=== PATIENT | female | born 1965 | race Caucasian/White ===

== ENCOUNTER → 2019-12-28 | Outpatient (CLI) | payer MEDICAID ==
[2019-12-28 15:12] LABS: FERRITIN 6.86 ng/mL (11.1-264.0)
== END ==
LOC: OD 13:14
PROVIDERS: ATTEND Nurse Practitioner Family
DX: D64.9 Anemia, unspecified (principal)
CPT/HCPCS: 36415; 82728; 83540; 83550

== ENCOUNTER 2020-01-02 17:53 | Emergency (ER) | payer MEDICAID ==
[2020-01-02 18:01] VITALS: BP 150/89
[2020-01-02] MEDS ORDERED: METOCLOPRAMIDE HCL ORAL SOLN 10 MG/10 ML UDCUP PO ONE (20:19)
[2020-01-02] MEDS ORDERED: LIDOCAINE 2% VISCOUS SOLN 15 ML UDCUP PO ONE (20:19)
[2020-01-02] MEDS ORDERED: MAG HYDROX/AL HYDROX/SIMETH SUSP 30 ML UDCUP PO ONE (20:19)
--- NOTE | 2020-01-02 20:23 | ER Document Report ---
ED GI/ - General Chief Complaint: Abdominal Pain Stated Complaint: ABDOMINAL PAIN,BLOOD IN STOOLS Time Seen by Provider: 01/02/20 20:03 Primary Care Provider: SHARMILA NEVES FNP [Primary Care Provider] - Follow up as needed Notes: CHIEF COMPLAINT: Upper abdominal pain HPI: 54-year-old female with history of gastric ulcers with prior history for gastric ulcers presenting for upper abdominal pain. Patient states that she also has a history of anemia. Patient states she has an upper endoscopy scheduled with Dr. Douglas in 2 weeks. States that she recently started iron pills and noticed that her stool became black and tarry after starting the iron pills. Abdominal pain has not changed significantly after starting the iron pills. Has not had vomiting. Is not on other medications for her stomach. ROS: See HPI - all other systems were reviewed and are otherwise negative Constitutional: no fever Eyes: no drainage, no blurred vision ENT: no runny nose, no sore throat Cardiovascular: no chest pain Resp: no SOB, no cough GI: no vomiting, no diarrhea, + abdominal pain : no dysuria Integumentary: no rash Allergy: no hives Musculoskeletal: no extremity pain or swelling Neurological: no numbness/tingling, no weakness MEDICATIONS: I agree with the patient medications as charted by the RN. ALLERGIES: I agree with the allergies as charted by the RN. PAST MEDICAL HISTORY/PAST SURGICAL HISTORY: Reviewed and agree as charted by RN. SOCIAL HISTORY: Reviewed and agree as charted by RN. FAMILY HISTORY: No significant familial comorbid conditions directly related to patient complaint EXAM: Reviewed vital signs as charted by RN. CONSTITUTIONAL: Alert and oriented and responds appropriately to questions. Well-appearing; well-nourished HEAD: Normocephalic; atraumatic EYES: PERRL; Conjunctivae clear, sclerae non-icteric ENT: normal nose; no rhinorrhea; moist mucous membranes; pharynx without lesions noted, no uvula edema or deviation, no tonsillar hypertrophy, phonation normal NECK: Supple without meningismus; non-tender; no cervical lymphadenopathy, no masses CARD: RRR; no murmurs, no clicks, no rubs, no gallops; symmetric distal pulses RESP: Normal chest excursion without splinting or tachypnea; breath sounds clear and equal bilaterally; no wheezes, no rhonchi, no rales, pulse oximetry 100% on room air not hypoxic ABD/GI: Normal bowel sounds; non-distended; soft, mild tenderness to the upper abdomen on palpation, no rebound, no guarding; no palpable organomegaly or masses. BACK: The back appears normal and is non-tender to palpation, there is no CVA tenderness EXT: Normal ROM in all joints; non-tender to palpation; no cyanosis, no effusions, no edema SKIN: Normal color for age and race; warm; dry; good turgor; no acute lesions noted NEURO: Moves all extremities equally; Motor and sensory function intact PSYCH: The patient's mood and manner are appropriate. Grooming and personal hygiene are appropriate. MDM: 54-year-old female with history of anemia with history of gastric ulcers presenting for continued abdominal pain. This is not an issue for the patient she has endoscopy scheduled in 2 weeks. Stools became dark and tarry after starting iron pills only. States prior to starting the iron pills. Will obtain screening labs and plan for CT given her age and her upper abdominal discomfort to evaluate perforation or other surgical or infectious process - Related Data Allergies/Adverse Reactions: prozac Allergy (Uncoded 01/02/20 20:28) Home Medications: liquid sulfate. dicyclomine. ferrous sulfate. lisinopril. hydrochlorothiazide. lizzess Past Medical History - Social History Smoking Status: Unknown if Ever Smoked Family History: Reviewed & Not Pertinent Physical Exam - Vital signs Vitals: Temp Pulse Resp BP Pulse Ox 97.9 F 65 22 H 150/89 H 98 01/02/20 17:59 01/02/20 17:59 01/02/20 17:59 01/02/20 17:59 01/02/20 17:59 Course - Re-evaluation Re-evalutation: 01/02/20 20:47 Nursing asked me to speak with the patient as she declined to have her IV started her lab work drawn. She is now declining all testing at this time does feel slightly better after GI cocktail but does not want lab work or imaging studies states she will call her advanced practice nurse in the morning. She does not wish to have any further testing at this time despite my indication that we have not found a definitive reason for her discomfort and cannot tell her that she does not have a more serious condition that may result in disability and , she verbalizes understanding of this - Vital Signs Vital signs: Temp Pulse Resp BP Pulse Ox 97.9 F 65 22 H 150/89 H 98 01/02/20 17:59 01/02/20 17:59 01/02/20 17:59 01/02/20 17:59 01/02/20 17:59 Discharge - Discharge Clinical Impression: Abdominal pain, epigastric, Left against medical advice Condition: Fair Disposition: HOME, SELF-CARE Additional Instructions: You have decided to leave AGAINST MEDICAL ADVICE without completing the recommended testing here today to determine the cause of your abdominal pain. Please follow-up with your advanced practice nurse tomorrow. Return to the hospital if you have any worsening symptoms. Please be aware that we could not definitively tell you that you do not have a serious condition that may deteriorate resulting in disability or Referrals: SHARMILA NEVES FNP [Primary Care Provider] - Follow up as needed
== END 2020-01-02 21:02 | disposition home or self-care (01) ==
LOC: ER 17:53
DX: Z53.20 Procedure and treatment not carried out because of patient's decision for unspecified reasons (principal); R10.13 Epigastric pain; R10.10 Upper abdominal pain, unspecified; R19.5 Other fecal abnormalities; R11.10 Vomiting, unspecified; Z88.8 Allergy status to other drugs, medicaments and biological substances; Z79.899 Other long term (current) drug therapy
CPT/HCPCS: 99283; J3490 ×3; 74177

== ENCOUNTER 2020-01-12 07:01 | Day surgery (SDC) | payer MEDICAID ==
[2020-01-12] MEDS ORDERED: PROPOFOL INJ 200 MG/20 ML VIAL IV ONE (07:40)
--- NOTE | 2020-01-12 08:49 | Operative Report ---
Operative Report DATE OF SURGERY: 01/12/20 Operative Report: The risk, benefits and alternatives of the procedure including the risk of bleeding, perforation requiring surgery have been explained to the patient in detail and informed consent has been obtained. Patient is taken back to the endoscopy suite and placed in a left, lateral decubital position. Timeout was called. Propofol medication is administered. Rectal examination is done which did not reveal any masses, tears or fissures. An Olympus videoscope was introduced into the patient's rectum. Scope was then carefully advanced all the way to the cecum. Cecum was identified by the usual anatomical landmarks including the ileocecal valve as well as the appendiceal office. Photodocumentation is obtained. Scope was then sequentially pulled back via the rest segments of the colon including the ascending colon, hepatic flexure, transverse colon, splenic flexure, descending colon and finally into the rectosigmoid portions of the colon. Retroflexion maneuver is performed. The risks benefits and alternatives of the procedure explained to the patient in detail and informed consent is obtained.A GIF Olympus video scope was inserted into the patient's mouth and hypopharynx ,the esophagus is identified intubated and insufflated ,the scope was then advanced through the esophagus stomach and duodenum, retroflexion maneuver is done the esophagus stomach and first and second portions of the duodenum examined PREOPERATIVE DIAGNOSIS: History of gastric ulcers. Chronic anemia. Change of bowel habits. Dysphagia POSTOPERATIVE DIAGNOSIS: Gastric outlet ulcers x2 duodenal ulcer status post biopsy. Gastritis. Hiatal hernia. Ventral hernia. Diverticulosis. Internal hemorrhoids. Random biopsies bisect: Rule out collagenous colitis OPERATION: Colonoscopy with biopsy. EGD with biopsy SURGEON: YANETH AMOR ANESTHESIA: LMAC TISSUE REMOVED OR ALTERED: As noted above. COMPLICATIONS: None. ESTIMATED BLOOD LOSS: None. INTRAOPERATIVE FINDINGS: As noted above. PROCEDURE: Patient tolerated the procedure well. No immediate postprocedure complications are noted. Patient is discharged in good condition. Discharge date 01/12/2020. Discharge diet: Regular. Discharge activity: Regular. 2 to 3-week follow-up to discuss findings. Patient is instructed call the office or proceed to the emergency room should there be any further problems or questions. Wait on the pathology. 5-year surveillance colonoscopy
[2020-01-12 09:28] VITALS: BP 148/64
== END 2020-01-12 09:20 | disposition home or self-care (01) ==
LOC: END 07:01
PROVIDERS: ATTEND Internal Medicine Gastroenterology
DX: K44.9 Diaphragmatic hernia without obstruction or gangrene (principal); K57.30 Diverticulosis of large intestine without perforation or abscess without bleeding; K64.8 Other hemorrhoids; K43.9 Ventral hernia without obstruction or gangrene; I10 Essential (primary) hypertension; D64.9 Anemia, unspecified; Z87.891 Personal history of nicotine dependence; Z87.11 Personal history of peptic ulcer disease; Z79.899 Other long term (current) drug therapy; Z03.818 Encounter for observation for suspected exposure to other biological agents ruled out
CPT/HCPCS: 43239; 45380; 87635; 88342 ×2; 88305 ×2; J2704; C9803; 813

== ENCOUNTER → 2020-03-06 | Outpatient (CLI) | payer MEDICAID ==
[2020-03-06 08:40] LABS: ABSOLUTE BASOPHILS # (AUTO) 0.1 10^3/uL (0.0-0.2); ABSOLUTE EOSINOPHILS # (AUTO) 0.3 10^3/uL (0.0-0.6); ABSOLUTE LYMPHOCYTES (AUTO) 1.6 10^3/uL (0.5-4.7); ABSOLUTE MONOCYTES (AUTO) 0.4 10^3/uL (0.1-1.4); ABSOLUTE NEUT (AUTO) 3.7 10^3/uL (1.7-8.2); BASOPHILS % (AUTO) 0.9 % (0-2); EOSINOPHILS % (AUTO) 5.3 % (0-6); HEMATOCRIT 37.3 % (36.0-47.0); HEMOGLOBIN 12.5 g/dL (12.0-15.5); LYMPHOCYTES % (AUTO) 26.5 % (13-45); MEAN CORPUSCULAR HEMOGLOBIN 28.7 pg (27.0-33.4); MEAN CORPUSCULAR HGB CONC 33.6 g/dL (32.0-36.0); MEAN CORPUSCULAR VOLUME 85 fl (80-97); PLATELET COUNT 216 10^3/uL (150-450); RED BLOOD COUNT 4.37 10^6/uL (3.72-5.28); RED CELL DISTRIBUTION WIDTH 20.1 % (11.5-14.0); SEGMENTED NEUTROPHILS % (AUTO) 60.3 % (42-78); TOTAL CELLS COUNTED % (AUTO) 100 %; WHITE BLOOD COUNT 6.1 10^3/uL (4.0-10.5)
[2020-03-06 09:09] LABS: ALBUMIN 4.5 g/dL (3.5-5.0); ALKALINE PHOSPHATASE 78 U/L (38-126); ASPARTATE AMINO TRANSFERASE 33 U/L (14-36); BILIRUBIN,DIRECT 0.3 mg/dL (0.0-0.4); BILIRUBIN,TOTAL 0.4 mg/dL (0.2-1.3); BLOOD UREA NITROGEN 24 mg/dL (7-20); CALCIUM 10.9 mg/dL (8.4-10.2); CARBON DIOXIDE 24 mmol/L (22-30); CHLORIDE 106 mmol/L (98-107); CHOLESTEROL 270.91 mg/dL (0-200); GLUCOSE 139 mg/dL (75-110); TOTAL PROTEIN 7.2 g/dL (6.3-8.2); TRIGLYCERIDES 336 mg/dL (<150)
[2020-03-06 09:22] LABS: ANION GAP 10 (5-19); IRON(TIBC) 42.8 ug/dL (37-170); POTASSIUM 3.5 mmol/L (3.6-5.0)
[2020-03-06 09:34] LABS: DIRECT LDL 161 mg/dL (<100)
[2020-03-06 09:37] LABS: VLDL CHOLESTEROL 67.2 mg/dL (10-31)
== END ==
LOC: OD 07:34
PROVIDERS: ATTEND Nurse Practitioner Family
DX: I10 Essential (primary) hypertension (principal); D50.9 Iron deficiency anemia, unspecified; R06.2 Wheezing; Z79.899 Other long term (current) drug therapy
CPT/HCPCS: 36415; 80053; 80061; 82728; 83540; 83550; 85025

== ENCOUNTER 2020-03-09 08:30 | Day surgery (SDC) | payer MEDICAID ==
[~2020-03-09 08:30] MED LIST: PROPOFOL INJ 200 MG/20 ML VIAL IV ONE
--- NOTE | 2020-03-09 09:38 | Operative Report ---
Operative Report DATE OF SURGERY: 03/09/20 Operative Report: The risks benefits and alternatives of the procedure explained to the patient in detail and informed consent is obtained.A GIF Olympus video scope was inserted into the patient's mouth and hypopharynx, the esophagus is identified intubated and insufflated, the scope was then advanced through the esophagus stomach and duodenum, retroflexion maneuver is done, the esophagus stomach and first and second portions of the duodenum examined PREOPERATIVE DIAGNOSIS: Follow-up gastric ulcer POSTOPERATIVE DIAGNOSIS: Healing gastric ulcer status post biopsy. Hiatal hernia OPERATION: EGD with biopsy SURGEON: AYNETH AMOR ANESTHESIA: LMAC TISSUE REMOVED OR ALTERED: As noted above. COMPLICATIONS: None. ESTIMATED BLOOD LOSS: None. INTRAOPERATIVE FINDINGS: As noted above. PROCEDURE: Patient tolerated the procedure well. No immediate postprocedure complications are noted. Patient is discharged in good condition. Discharge date 03/09/2020. Discharge diet: Regular. Discharge activity: Regular. 2 to 3-week follow-up to discuss findings. Patient is instructed to call the office or proceed to the emergency room should there be any further problems or questions. Wait on the pathology.
[2020-03-09 10:18] VITALS: BP 117/67
== END 2020-03-09 10:19 | disposition home or self-care (01) ==
LOC: END 08:30
PROVIDERS: ATTEND Internal Medicine Gastroenterology
DX: K25.9 Gastric ulcer, unspecified as acute or chronic, without hemorrhage or perforation (principal); K26.9 Duodenal ulcer, unspecified as acute or chronic, without hemorrhage or perforation; K44.9 Diaphragmatic hernia without obstruction or gangrene; K21.9 Gastro-esophageal reflux disease without esophagitis; I10 Essential (primary) hypertension; D64.9 Anemia, unspecified; G51.0 Bell's palsy; F17.200 Nicotine dependence, unspecified, uncomplicated; Z79.899 Other long term (current) drug therapy; Z88.8 Allergy status to other drugs, medicaments and biological substances; Z03.818 Encounter for observation for suspected exposure to other biological agents ruled out
CPT/HCPCS: 43239; 87635; 88342 ×2; 88305 ×2; 00731; J2704; C9803; 731

== ENCOUNTER 2020-05-11 09:01 | Day surgery (SDC) | payer MEDICAID ==
[2020-05-11] MEDS ORDERED: PROPOFOL INJ 200 MG/20 ML VIAL IV ONE (10:41)
--- NOTE | 2020-05-11 11:57 | Operative Report ---
Operative Report DATE OF SURGERY: 05/11/20 Operative Report: The risks benefits and alternatives of the procedure explained to the patient in detail and informed consent is obtained.A GIF Olympus video scope was inserted into the patient's mouth and hypopharynx ,the esophagus is identified intubated and insufflated ,the scope was then advanced through the esophagus stomach and duodenum, retroflexion maneuver is done, the esophagus stomach and first and second portions of the duodenum examined PREOPERATIVE DIAGNOSIS: Follow-up gastric ulcer POSTOPERATIVE DIAGNOSIS: Gastric ulcer that is healing but not entirely completely healed. Biopsy rule out malignancy. No active bleeding OPERATION: EGD with biopsy SURGEON: YANETH AMOR ANESTHESIA: LMAC TISSUE REMOVED OR ALTERED: As noted above. COMPLICATIONS: None. ESTIMATED BLOOD LOSS: None. INTRAOPERATIVE FINDINGS: As noted above. PROCEDURE: Patient tolerated the procedure well. No immediate postprocedure complications are noted. Patient is discharged in good condition. Discharge date 05/11/2020. Discharge diet: Regular. Discharge activity: Regular. 2 to 3-week follow-up to discuss findings. Patient is instructed to call the office or proceed to the emergency room should there be any further problems or questions. Wait on the pathology.
[2020-05-11 12:33] VITALS: BP 131/77
== END 2020-05-11 12:30 | disposition home or self-care (01) ==
LOC: END 09:01
PROVIDERS: ATTEND Internal Medicine Gastroenterology
DX: K25.9 Gastric ulcer, unspecified as acute or chronic, without hemorrhage or perforation (principal); K31.9 Disease of stomach and duodenum, unspecified; I10 Essential (primary) hypertension; Z87.891 Personal history of nicotine dependence; Z79.899 Other long term (current) drug therapy; Z98.890 Other specified postprocedural states
CPT/HCPCS: 43239; 88305 ×2; J2704; 731; 88342

== ENCOUNTER 2020-06-30 09:01 | Day surgery (SDC) | payer MEDICAID ==
[2020-06-30 10:41] VITALS: BP 120/71
--- NOTE | 2020-06-30 10:46 | Operative Report ---
Operative Report DATE OF SURGERY: 06/30/20 Operative Report: The risks benefits and alternatives of the procedure explained to the patient in detail and informed consent is obtained.A GIF Olympus video scope was inserted into the patient's mouth and hypopharynx, the esophagus is identified intubated and insufflated ,the scope was then advanced through the esophagus stomach and duodenum, retroflexion maneuver is done ,the esophagus stomach and first and second portions of the duodenum examined PREOPERATIVE DIAGNOSIS: Epigastric pain POSTOPERATIVE DIAGNOSIS: Gastric ulcer appears to be improving. Biopsies obtained. We will need small bowel follow-through since intubation to the second portion of the duodenum is still somewhat difficult OPERATION: EGD with biopsy SURGEON: YANETH AMOR ANESTHESIA: LMAC TISSUE REMOVED OR ALTERED: As noted above. COMPLICATIONS: None. ESTIMATED BLOOD LOSS: None. INTRAOPERATIVE FINDINGS: As noted above. PROCEDURE: Patient tolerated the procedure well. No immediate postprocedure complications are noted. Patient is discharged in good condition. Discharge date 06/30/2020. Discharge diet: Regular. Discharge activity: Regular. 2 to 3-week follow-up to discuss findings. Patient is instructed to call the office or proceed to the emergency room should there be any further problems or questions. Wait on the pathology.
== END 2020-06-30 10:26 | disposition home or self-care (01) ==
LOC: OROUT 09:01
PROVIDERS: ATTEND Internal Medicine Gastroenterology
DX: K25.7 Chronic gastric ulcer without hemorrhage or perforation (principal); I10 Essential (primary) hypertension; F31.9 Bipolar disorder, unspecified; K21.9 Gastro-esophageal reflux disease without esophagitis; J45.909 Unspecified asthma, uncomplicated; Z79.899 Other long term (current) drug therapy
CPT/HCPCS: 43239; 88342 ×2; 88305 ×2; 00731; J2704; 731